=== PATIENT | male | born 1985 | race Caucasian/White ===

== ENCOUNTER 2017-03-27 15:42 | Emergency (ER) | payer MEDICAID ==
--- NOTE | 2017-03-27 16:12 | ED Physician Chart ---
ED Chief Complaint/HPI - Patient Information Date Seen:: 03/27/17 Time Seen:: 15:55 Chief Complaint:: Left Foot Pain History of Present Illness:: onset x one day of left foot pain and swelling; no paresthesias, weakness, gait changes, calf pain, pelvic/hip pain, abd. pain, flank pain, C/P, SOB, neck pain , or H/As; pt's last tetanus shot: < 5 years; UTD Allergies:: Allergies Allergy/AdvReac Type Severity Reaction Status Date / Time No Known Allergies Allergy Verified 03/27/17 15:53 Vitals:: Vital Signs - 8 hr 03/27/17 15:53 Temp 98.6 F HR 64 RR 16 BP 138/66 O2 Sat % 95 Historian:: Patient, Family Member Review:: Nurse's Note Reviewed ED Review of Systems - Review of Systems General/Constitutional: No fever, No chills, No weight loss, No weakness, No diaphoresis, No edema, No loss of appetite Skin: No skin lesions, No rash, No bruising Head: No headache, No light-headedness Eyes: No loss of vision, No pain, No diplopia ENT: No earache, No nasal drainage, No sore throat, No tinnitus Neck: No neck pain, No swelling, No thyromegaly, No stiffness, No mass noted Cardio Vascular: No chest pain, No palpitations, No PND, No orthopnea, No edema Pulmonary: No SOB, No cough, No sputum, No wheezing GI: No nausea, No vomiting, No diarrhea, No pain, No melena, No hematochezia, No constipation, No hematemesis G/U: No dysuria, No frequency, No hematuria Musculoskeletal: Bone or joint pain, No back pain, Muscle pain Endocrine: No polyuria, No polydipsia Psychiatric: No prior psych history, No depression, No anxiety, No suicidal ideation Hematopoietic: No bruising, No lymphadenopathy Allergic/Immuno: No urticaria, No angioedema Neurological: No syncope, No focal symptoms, No weakness, No paresthesia, No headache, No seizure, No dizziness, No confusion, No vertigo ED Past Medical History - Past Medical History Obtainable: Yes Past Medical History: No significant medical hx Family History: HTN Social History: Non Smoker, No Alcohol, No Drug Use, Surgical History: other (Left Ankle Surgery) Psychiatricy History: None Medication: Reviewed Family Medical History - Family Member Mother Living Status: Still Living Other Medical History: no med. prob. ED Physical Exam - Physical Examination General/Constitutional: Awake, Well-developed, well-nourished, Alert, No distress, GCS 15, Non-toxic appearing, Ambulatory Head: Atraumatic Eyes: Lids, conjuctiva normal, PERRL, EOMI Skin: Nl inspection, No rash, No skin lesions, No ecchymosis, Well hydrated, No lymphadenopathy ENMT: External ears, nose nl, Nasal exam nl, Lips, teeth, gums nl Neck: Nontender, Full ROM w/o pain, No JVD, No nuchal rigidity, No bruit, No mass, No stridor Respiratory: Nl effort/Exclusion, Clear to Auscultation, No Wheeze/Rhonchi/Rales Cardio Vascular: RRR, No murmur, gallop, rubs, NL S1 S2 GI: No tenderness/rebounding/guarding, No organomegaly, No hernia, Normal BS's, Nondistended, No mass/bruits, No McBurney tenderness : No CVA tenderness Extremities: No tenderness or effusion, Full ROM, normal strength in all extremities, No edema, Normal digits & nails Other Extremities comments:: Left Foot: mild swelling and tenderness at dorsal lateral MT region; no loss of ROMs; no cellulitis; Gait: WNL; no ligament instability; good motor, tendon, and sensory functions; good NV functions Neuro/Psych: Alert/oriented, DTR's symmetric, Normal sensory exam, Normal motor strength, Judgement/insight normal, Mood normal, Normal gait, No focal deficits Misc: Normal back, No paraspinal tenderness ED Labs/Radiology/EKG Results - Radiology Results Comments:: X-Rays: ? Avulsion Fx 5'th MT region Left Foot ED Septic Shock - . Is Septic Shock (SBP<90, OR Lactate>4 mmol\L) present?: No - <6hrs of presentation: Vital Signs: Vital Signs - 8 hr 03/27/17 15:53 Temp 98.6 F HR 64 RR 16 BP 138/66 O2 Sat % 95 ED Reassessment (Disposition) - Reassessment Reassessment:: pt is comfortable upon discharge Reassessment Condition:: Improved - Diagnosis Diagnosis:: Dx: Left Foot Fracture; Left Foot Sprain; Sprains and Strains - Aftercare/Follow up Instructions Aftercare/Follow-Up Instructions:: Counseled pt regarding lab results/diagnosis & need follow up, Refer to Discharge Instructions, Counseled pt & family regarding lab results/diagnosis & need follow up - Patient Disposition Discharge/Transfer:: Home Condition at Disposition:: Stable, Improved (RTER prn if existing s/s reoccur and/or get worse and/or any other new s/s occur; X-Rays Instructions; ACIs given for all above Dx; Refer to Orthopedist ENOC; F/U with PMD in one day or prn; RTER prn if concerned)
--- NOTE | 2017-03-28 08:37 | Diagnostic Imaging Report ---
Left ankle 3 views Indication: pain Comparison: Left foot x-rays the same day Findings: There is soft tissue swelling surrounding the ankle. There is a metallic density measuring 8 mm along the medial malleolus region probably related to previous surgery. Additional tiny adjacent metallic densities are also noted possibly due to postsurgical sequela with tiny densities also seen along the adjacent soft tissues. No evidence of an acute fracture. Moderate degenerative changes are seen with hypertrophic bony spurring. No dislocation or evidence of subluxation. Osteophytic spur of the head of the talus is noted. There may have been old healed distal fibular fracture. Impression: Soft tissue swelling surrounding the ankle. No evidence of an acute fracture. 8 mm metallic density seen within the medial malleolus, probably related to prior surgery. Tiny metallic densities also seen in this region and along the adjacent soft tissues which may also been sequela of previous surgery. Please correlate with clinical history and old exams Probable old distal fibular fracture. Degenerative changes. In the setting of trauma, if clinical symptoms persist and there is continued concern for an occult fracture, follow up exams in 5-7 days is suggested.
--- NOTE | 2017-03-28 08:42 | Diagnostic Imaging Report ---
Left foot 3 views Indication: pain Comparison: Left ankle x-ray the same day Findings: Exam is limited as oblique views were not obtained. Moderate degenerative changes are noted with areas of hypertrophic bony spurring greatest along the head of the talus and navicular. Postsurgical changes of the medial malleolus noted. No evidence of a gross fracture. Mild soft tissue prominence is noted. Impression: Limited exam as oblique views were not obtained. No obvious fracture identified, however, oblique views are recommended for further assessment including assessment of the midfoot bones. Degenerative changes with osteophytic spurring greatest along the head of the talus and navicular. In the setting of trauma, if clinical symptoms persist and there is continued concern for an occult fracture, follow up exams in 5-7 days is suggested.
== END 2017-03-27 18:35 | disposition home or self-care (01) ==
LOC: ER 15:42
DX: S92.902A Unspecified fracture of left foot, initial encounter for closed fracture (principal); X58.XXXA Exposure to other specified factors, initial encounter; Y93.89 Activity, other specified; Y92.89 Other specified places as the place of occurrence of the external cause; Y99.8 Other external cause status
CPT/HCPCS: 73610-TC; 73620-TC-LT; Z7502